=== PATIENT | male | born 1935 | race Caucasian/White ===

== ENCOUNTER 2021-02-16 11:00 | Inpatient (IN) | payer OTHER ==
[2021-02-16] MEDS ORDERED: ACETAMINOPHEN 325 MG TABLET PO PRN (11:34)
[2021-02-16] MEDS ORDERED: DIPHENHYDRAMINE 25 MG TAB/CAP PO PRN (11:35)
[2021-02-16] MEDS ORDERED: ONDANSETRON 4 MG (ODT) TAB PO PRN (11:36)
[2021-02-16] MEDS ORDERED: LOPERAMIDE HCL 2 MG CAPSULE PO PRN (11:36)
[2021-02-16] MEDS ORDERED: POLYETHYL GLY 3350 17 GM/DOSE PO PRN (11:37)
[2021-02-16] MEDS ORDERED: ONDANSETRON 4 MG/2 ML VIAL IV PRN (11:37)
[2021-02-16] MEDS ORDERED: NACHLORIDE 0.45% 1,000 ML IV SCH (12:00)
[2021-02-16 12:48] LABS: Absolute Lymphocytes (CBC) 0.9 K/uL (0.7-4.9); Basophils % 0.9 % (0-1.3); Hematocrit 26.1 % (39.6-49.0); Lymphocytes % 18.7 % (15.3-44.8); MPV 7.8 fL (7.6-11.3)
[2021-02-16 12:52] LABS: Protime INR 1.05
[2021-02-16 13:36] LABS: Albumin 3.6 g/dL (3.4-5.0); Bilirubin Direct 0.1 mg/dL (0-0.2); Bilirubin Total 0.4 mg/dL (0.2-1.0); Potassium 3.9 mmol/L (3.5-5.1); Protein, Total 7.3 g/dL (6.4-8.2); Thyroid Stimulating Hormone 1.07 uIU/mL (0.360-3.740)
[2021-02-16 13:38] LABS: Magnesium 3.9 mg/dL (1.8-2.4)
--- NOTE | 2021-02-16 13:42 | RAD REPORT ---
EXAM DESCRIPTION: CT - Chest Abd Pelvis Wo Con - 02/16/2021 12:56 pm CLINICAL HISTORY: pain and weight loss COMPARISON: THORAX WO CONTRAST dated 11/02/2009; Abdomen Exam Complete dated 10/22/2020 TECHNIQUE: Axial 5 millimeter thick images of the chest, abdomen and pelvis were obtained without IV contrast. Oral contrast was administered. All CT scans are performed using dose optimization technique as appropriate and may include automated exposure control or mA/KV adjustment according to patient size. FINDINGS: Lung reveles are hyperexpanded consistent with an underlying COPD. This can be correlated w ith clinical findings and history. No suspicious mass or infiltrate of the lung parenchyma. In the la teral lower left lung field there is an 11 millimeter fully calcified nodule. No pneumothorax or pleu ral effusion. No chest wall mass or abnormal axillary lymphadenopathy seen. Mediastinal and hilar r egions show a few granulomatous calcifications. Aortic and Coronary artery calcifications are present . No suspicious mediastinal or hilar mass or lymphadenopathy seen. No significant cardiac finding. The liver, spleen and pancreas show no significant findings for non contrast imaging. Gallbladder is not identified and may be contracted or surgically absent. No cholecystectomy clips are present. No hydronephrosis or suspicious renal mass. Isodense masses and pyelonephritis cannot be excluded on non contrast imaging. Patient has multiple variably sized cysts of the right kidney up to 5.5 cm in s ize. Minimal cystic changes present in the left kidney. No obstructing or nonobstructing calculi. No urinary bladder abnormality seen. An enlarged prostate gland does project into the bladder base. Laureano elation can be made with PSA values with follow-up as warranted. No seminal vesicle abnormality. No dilated bowel loops or focal ball bowel wall thickening. Large stool volume is present filling but not dilating the colon down to the rectum level. Acute colon process is not seen. No free air, free fluid or inflammatory stranding. No hernia, mass or bulky lymphadenopathy. No significant bone or vascular finding. IMPRESSION: CT chest imaging shows no occult malignancy or other acute finding. Nonacute findings ar e detailed in the body of the report. CT abdomen and pelvis imaging also without evidence for occult malignancy or acute finding. Nonacute findings are detailed in the body of the report. Exam sensitivity is decreased in the absence of oral and IV contrast.
[2021-02-16 16:18] VITALS: BMI 22.6
[2021-02-16] MEDS: NACHLORIDE 0.45% 1,000 ML IV SCH (16:30)
[2021-02-17] MEDS: NACHLORIDE 0.45% 1,000 ML IV SCH ×4 (00:35→19:10)
[2021-02-17 02:45] LABS: Urine Appearance CLEAR (Clear); Urine Bilirubin NEGATIVE (Negative); Urine Blood NEGATIVE (Negative); Urine Color YELLOW (Yellow); Urine Glucose NEGATIVE (Negative); Urine Protein NEGATIVE (Negative); Urine Urobilinogen 0.2 mg/dL (0.2-1.0); Urine pH 6.5 (5.0-7.0)
[2021-02-17 03:00] LABS: Urine Microscopic Reflex NO UMIC
[2021-02-17 06:04] LABS: Absolute Lymphocytes (CBC) 1.1 K/uL (0.7-4.9); Basophils % 0.9 % (0-1.3); Hematocrit 25.5 % (39.6-49.0); Lymphocytes % 24.2 % (15.3-44.8); MPV 7.8 fL (7.6-11.3); RBC Red Blood Cell Count 2.93 M/uL (4.33-5.43)
[2021-02-17 07:10] LABS: Potassium 3.9 mmol/L (3.5-5.1)
[2021-02-17 07:13] LABS: Magnesium 3.6 mg/dL (1.8-2.4)
[2021-02-17 07:32] LABS: RBC Red Blood Cell Count 2.81 M/uL (4.33-5.43)
[2021-02-17] MEDS ORDERED: COSYNTROPIN 0.25 MG VIAL IV SCH (08:00)
[2021-02-17] MEDS ORDERED: ENOXAPARIN 40 MG/0.4 ML SQ SCH (09:00)
[2021-02-17] MEDS: ATORVASTATIN 40 MG TAB PO SCH (10:26)
[2021-02-17] MEDS: METOPROLOL TAR 25 MG TAB PO SCH (10:27)
[2021-02-17] MEDS: ENOXAPARIN 30 MG/0.3 ML SQ SCH (10:27)
--- NOTE | 2021-02-17 17:49 | P.PN ---
Subjective Date of Service: 02/17/21 Chief Complaint: weak Subjective: Improving HE IS WEAK, WANTS TO GO HOME. HIS CREAT IS BETTER BUT NOT TO A LEVEL HE CAN GOHOME. HE WOULD STAY ONE MORE DAY. HE IS ADAMANT ABOUT GOING HOME. Physical Examination - Vital Signs Temperature: 97.2 F Blood Pressure: 92/47 Pulse: 59 Respirations: 16 Pulse Ox (%): 100 - Physical Exam General: Oriented x3, Mild distress HEENT: Atraumatic, PERRLA, EOMI Neck: Supple, JVD not distended Respiratory: Clear to auscultation bilaterally, Normal air movement Cardiovascular: Regular rate/rhythm, Normal S1 S2 Gastrointestinal: Normal bowel sounds, No tenderness Musculoskeletal: No tenderness Integumentary: No rashes Neurological: Normal speech, Normal tone, Normal affect Lymphatics: No axilla or inguinal lymphadenopathy - Studies Laboratory Data (last 24 hrs) 02/17/21 05:07: Sodium 143, Potassium 3.9, BUN 68 H, Creatinine 3.89 H, Glucose 106, Magnesium 3.6 H* 02/17/21 05:07: WBC 4.80, Hgb 8.7 L, Hct 25.5 L, Plt Count 225 Medications List Reviewed: Yes Assessment And Plan - Current Problems (Diagnosis) (1) Prerenal acute renal failure Current Visit: Yes Status: Acute Plan: CONT IV FLUIDS HE DOES NOT EAT OR DRINK WELL AT HOME. IS TRYING. I WILL STOP ALL DIURETICS GIVEN TO HIM FOR CHF AND WILL DO FU IN OFFICE.
[2021-02-17] MEDS: ENSURE ENLIVE 237 ML CAN PO SCH (21:00)
[2021-02-18] MEDS: NACHLORIDE 0.45% 1,000 ML IV SCH ×5 (01:50→20:28)
[2021-02-18 05:37] LABS: Absolute Lymphocytes (CBC) 1.3 K/uL (0.7-4.9); Basophils % 0.7 % (0-1.3); Lymphocytes % 26.3 % (15.3-44.8); MPV 7.7 fL (7.6-11.3); RBC Red Blood Cell Count 2.66 M/uL (4.33-5.43)
[2021-02-18 05:51] LABS: Potassium 3.4 mmol/L (3.5-5.1)
[2021-02-18] MEDS ORDERED: POTASSIUM 25 MEQ EFFERV TAB PO ONE (06:31)
[2021-02-18] MEDS: ENSURE ENLIVE 237 ML CAN PO SCH ×2 (08:00→20:28)
[2021-02-18] MEDS: ATORVASTATIN 40 MG TAB PO SCH (08:00)
[2021-02-18] MEDS: METOPROLOL TAR 25 MG TAB PO SCH (08:00)
[2021-02-18] MEDS: ENOXAPARIN 30 MG/0.3 ML SQ SCH (08:01)
[2021-02-18] MEDS ORDERED: NA CHLORIDE 0.9% 250 ML ONE (11:38)
[2021-02-18 12:19] VITALS: O2SAT 100
[2021-02-18 20:35] LABS: Hematocrit 30.8 % (39.6-49.0)
--- NOTE | 2021-02-18 21:22 | P.PN ---
Subjective Date of Service: 02/18/21 Chief Complaint: weak Subjective: Improving HE IS WEAK, WANTS TO GO HOME. HIS CREAT IS BETTER BUT NOT TO A LEVEL HE CAN GOHOME. HE WOULD STAY ONE MORE DAY. HE IS ADAMANT ABOUT GOING HOME. HE WAS VERY ADAMANT TO GO HOME. HE AGREED FOR BLOOD TRANSFUSION. CONVINCED HIM TO STAY OVERNIGHT I STILL NEED AT LEAST ONE MORE DAY FOR CREATININE TO COME DOWN. HE NEEDS MATOS WITH GI ON OUTPATIENT BASIS. HE AND ARE AWARE. Physical Examination - Vital Signs Temperature: 97.2 F Blood Pressure: 121/60 Pulse: 49 Respirations: 16 Pulse Ox (%): 100 - Physical Exam General: Oriented x3 HEENT: Atraumatic, PERRLA, EOMI Neck: Supple, JVD not distended Respiratory: Clear to auscultation bilaterally, Normal air movement Cardiovascular: Regular rate/rhythm, Normal S1 S2 Gastrointestinal: Normal bowel sounds, No tenderness Musculoskeletal: No tenderness Integumentary: No rashes Neurological: Normal speech, Normal tone, Normal affect Lymphatics: No axilla or inguinal lymphadenopathy - Studies Laboratory Data (last 24 hrs) 02/18/21 20:11: Hgb 10.8 L D, Hct 30.8 L D 02/18/21 20:11: Potassium 4.3 02/18/21 12:00: Potassium Cancelled 02/18/21 05:05: Sodium 142, Potassium 3.4 L, BUN 52 H, Creatinine 3.27 H, Glucose 117 H 02/18/21 05:05: WBC 4.80, Hgb 8.0 L, Hct 23.0 L, Plt Count 186 Medications List Reviewed: Yes Assessment And Plan - Current Problems (Diagnosis) (1) Prerenal acute renal failure Current Visit: Yes Status: Acute Plan: CONT IV FLUIDS HE DOES NOT EAT OR DRINK WELL AT HOME. IS TRYING. I WILL STOP ALL DIURETICS GIVEN TO HIM FOR CHF AND WILL DO FU IN OFFICE. (2) Acute anemia Current Visit: Yes Status: Acute Plan: HE IS UNDER CARE OF DR. BULL. HE NEEDS MORE FU HE HAD REFUSED FOR REPEAT COLONOSCOPY BEFORE BUT HE MAY DO IT PER .
[2021-02-19] MEDS: NACHLORIDE 0.45% 1,000 ML IV SCH (04:45)
[2021-02-19 06:12] LABS: Absolute Lymphocytes (CBC) 1.4 K/uL (0.7-4.9); Basophils % 0.7 % (0-1.3); Hematocrit 29.1 % (39.6-49.0); Lymphocytes % 20.8 % (15.3-44.8); MPV 7.4 fL (7.6-11.3); RBC Red Blood Cell Count 3.41 M/uL (4.33-5.43)
[2021-02-19 06:14] LABS: Potassium 3.4 mmol/L (3.5-5.1)
[2021-02-19 08:01] VITALS: BP 126/65; TEMP 97.4
--- NOTE | 2021-02-19 21:15 | P.DS ---
Admission Date: 02/17/21 Discharge Date: 02/19/21 Disposition: ROUTINE DISCHARGE Discharge Condition: FAIR Reason for Admission: weak - Problems (1) Prerenal acute renal failure Status: Acute (2) Acute anemia Status: Acute Hospital Course: MR. CHAKRABORTY COMES WITH ACUTE RENAL FAILURE, PRERENAL. HE IMPROVED WITH IV FLUIDS ALSO DROPPED HG AND NEEDED BLOOD TRANSFUSION. HE IS DISCHARGED IN STABLE CONDITION. HE WILL HAVE TO HYDRATE AT HOME. HE DID NOT WANT TO STAY FROM DAY ONE. WE HAD TO STRUGGLE TO KEEP HIM HERE FOR BLOOD TRANSFUSION. HE WILL GET GI MATOS DONE OUTPATIENT. Vital Signs/Physical Exam: Temp Pulse Resp BP Pulse Ox 97.4 F 51 16 126/65 100 02/19/21 08:00 02/19/21 08:00 02/19/21 08:00 02/19/21 08:00 02/19/21 08:00 Laboratory Data at Discharge: WBC 6.60 K/uL (4.3-10.9) D 02/19/21 05:44 Hgb 10.5 g/dL (13.6-17.9) L 02/19/21 05:44 Hct 29.1 % (39.6-49.0) L 02/19/21 05:44 Plt Count 181 K/uL (152-406) 02/19/21 05:44 PT 12.1 SECONDS (9.5-12.5) 02/16/21 12:30 INR 1.05 02/16/21 12:30 APTT 37.6 SECONDS (24.3-36.9) H 02/16/21 12:30 Sodium 143 mmol/L (136-145) 02/19/21 05:44 Potassium 3.4 mmol/L (3.5-5.1) L 02/19/21 05:44 BUN 38 mg/dL (7-18) H 02/19/21 05:44 Creatinine 2.53 mg/dL (0.55-1.3) H 02/19/21 05:44 Glucose 108 mg/dL (74-106) H 02/19/21 05:44 Phosphorus 5.0 mg/dL (2.5-4.9) H 02/16/21 12:30 Magnesium 3.6 mg/dL (1.8-2.4) H* 02/17/21 05:07 Total Bilirubin 0.4 mg/dL (0.2-1.0) 02/16/21 12:30 AST 11 U/L (15-37) L 02/16/21 12:30 ALT 21 U/L (12-78) 02/16/21 12:30 Alkaline Phosphatase 84 U/L (45-117) 02/16/21 12:30 Home Medications: Atorvastatin Calcium [Lipitor] 40 mg PO DAILY 02/16/21 Metoprolol Tartrate 25 mg PO DAILY 02/16/21
[2021-02-20 23:57] LABS: Vitamin D 1,25-Dihydroxy Total 18 pg/mL (18-72); Vitamin D,1,25-OH2, D2 <8 pg/mL
[2021-02-21 16:01] LABS: Albumin, (SPE) 3.3 g/dL (3.8-4.8); Alpha-1-Globulins 0.3 g/dL (0.2-0.3); Alpha-2-Globulins 0.7 g/dL (0.5-0.9); Gamma Globulins 1.1 g/dL (0.8-1.7); INTERPRETATION REPORT
== END 2021-02-19 08:45 | disposition home or self-care (01) | DRG 684 ==
LOC: 2ND 11:00 → OBSVTOIN 02-17 16:02
PROVIDERS: ADMIT Internal Medicine; ATTEND Internal Medicine
PROC: 30233N1 Transfusion of Nonautologous Red Blood Cells into Peripheral Vein, Percutaneous Approach (ICD-10-PCS; principal; 2021-02-18)
DX: N17.9 Acute kidney failure, unspecified (principal); I10 Essential (primary) hypertension; E78.5 Hyperlipidemia, unspecified; E86.0 Dehydration; D64.9 Anemia, unspecified; K59.09 Other constipation; E11.9 Type 2 diabetes mellitus without complications; Z79.899 Other long term (current) drug therapy; Z86.16 Personal history of COVID-19; Z20.822 Contact with and (suspected) exposure to COVID-19
CPT/HCPCS: 36415; 36430; 71250; 74176; 80048; 80076; 81003; 82024; 82533; 82553; 82607; 82652; 83735; 83970; 84100; 84132; 84165; 84443; 85014; 85018; 85025; 85044; 85610; 85730; 86021; 86850; 86900; 86901; 87040; G0378; J0834; J1650; J7050; P9016; U0003